=== PATIENT | male | born 1980 | race American Indian/Alaskan Native ===

== ENCOUNTER 2016-09-15 21:36 | Emergency (ER) | payer SELFPAY ==
[2016-09-15 22:26] VITALS: RESP 18; TEMP 98.3; O2SAT 100; BMI 21.7
--- NOTE | 2016-09-15 22:49 | ED PDOC ---
Arrival/HPI - General Chief Complaint: Weakness/Neurological Deficit Time Seen by Provider: 09/15/16 21:48 Historian: Patient - History of Present Illness Narrative History of Present Illness (Text): 09/15/16 22:45 This 36 yo male presents to this ED c/o b/l index, and thumb numbness x 2 years , and unintentional weight loss x 9 months. Patient stated he has a decreased appetite, and he has lost about 20 pounds in 9 months. Patient denies fever, sob, cp, abdominal pain, n/v/d, dizziness, urinary symptoms, rectal bleeding, hematochizia, melena, or abnormal gait. Time/Duration: Other (see HPI) Context: Home Past Medical History - Provider Review Nursing Documentation Reviewed: Yes - Infectious Disease Hx of Infectious Diseases: None - Psychiatric Hx Substance Use: No Family/Social History - Physician Review Nursing Documentation Reviewed: Yes Family/Social History: No Known Family HX Smoking Status: Light Smoker < 10 Cigarettes Daily Hx Alcohol Use: No Hx Substance Use: No Allergies/Home Meds Allergies/Adverse Reactions: Allergies No Known Allergies Allergy (Verified 03/08/12 10:21) Review of Systems - Review of Systems Constitutional: Normal. absent: Fatigue, Weight Change, Fevers Eyes: Normal ENT: Normal Respiratory: Normal. absent: SOB, Cough Cardiovascular: Normal Gastrointestinal: Appetite Changes. absent: Constipation, Diarrhea, Nausea, Vomiting, Hematochezia, Hematemesis Genitourinary Male: Normal. absent: Dysuria, Frequency, Hematuria Musculoskeletal: Normal. absent: Back Pain Skin: Normal. absent: Rash, Pruritis Neurological: Other ((+) numbness b/l thumb and index finger numbness). absent : Headache, Dizziness, Focal Weakness, Gait Changes, Speech Changes, Facial Droop, Disequilibrium, Seizure Endocrine: Normal Hemo/Lymphatic: Normal Psychiatric: Normal Physical Exam Vital Signs Temp Pulse Resp BP Pulse Ox 09/15/16 22:25 98.3 F 74 18 147/91 H 100 Temperature: Afebrile Blood Pressure: Normal Pulse: Regular Respiratory Rate: Normal Appearance: Positive for: Well-Appearing, Non-Toxic, Comfortable Pain Distress: None Mental Status: Positive for: Alert and Oriented X 3 - Systems Exam Head: Present: Atraumatic, Normocephalic Pupils: Present: PERRL Extroacular Muscles: Present: EOMI Conjunctiva: Present: Normal Mouth: Present: Moist Mucous Membranes Neck: Present: Normal Range of Motion Respiratory/Chest: Present: Clear to Auscultation, Good Air Exchange. No: Respiratory Distress, Accessory Muscle Use, Wheezes, Retracting, Rhonchi Cardiovascular: Present: Regular Rate and Rhythm, Normal S1, S2. No: Murmurs Abdomen: Present: Normal Bowel Sounds. No: Tenderness, Distention, Peritoneal Signs Back: Present: Normal Inspection. No: CVA Tenderness Upper Extremity: Present: Normal Inspection, Normal ROM, NORMAL PULSES, Neurovascularly Intact, Capillary Refill < 2s. No: Cyanosis, Edema Lower Extremity: Present: Normal Inspection, NORMAL PULSES, Normal ROM, Neurovascularly Intact, Capillary Refill < 2 s. No: Edema, CALF TENDERNESS Neurological: Present: GCS=15, CN II-XII Intact, Speech Normal, Motor Func Grossly Intact, Normal Sensory Function, Normal Cerebellar Funct, Gait Normal Skin: Present: Warm, Dry, Normal Color. No: Rashes Psychiatric: Present: Alert, Oriented x 3 Medical Decision Making ED Course and Treatment: 09/16/16 01:27 Re-evaluation. Patient feels better. Discussed results and plan with patient who expresses understanding. All questions answered and there is agreement with the plan to discharge home with instructions. Patient stable for discharge. Return if symptoms persist or worsen. 09/16/16 01:32 Patient was counseled for at least 10 minutes regarding tobacco use, risk, and benefits if he quit smoking. He understood plan. Re-evaluation Time: 01:28 Reassessment Condition: Re-examined, Improved - Lab Interpretations Lab Results: 09/15/16 23:09 09/15/16 23:09 Lab Results 09/16/16 00:09: Urine Color Yellow, Urine Appearance Sl cloudy, Urine pH 6.0, Ur Specific Kirby >= 1.030, Urine Protein Trace H, Urine Glucose (UA) Negative , Urine Ketones Negative, Urine Blood Negative, Urine Nitrate Negative, Urine Bilirubin Negative, Urine Urobilinogen 1.0 H, Ur Leukocyte Esterase Negative, Urine RBC 0 - 2, Urine WBC 0 - 2, Ur Epithelial Cells 0 - 2 09/15/16 23:09: HIV-1 Ab Rapid Screen Non reactive 09/15/16 23:09: Sodium 138, Potassium 4.0, Chloride 101, Carbon Dioxide 29, Anion Gap 12, BUN 17, Creatinine 1.0, Est GFR ( Amer) > 60, Est GFR (Non- Af Amer) > 60, Random Glucose 86, Calcium 9.6, Total Bilirubin 0.4, AST 43, ALT 41, Alkaline Phosphatase 61, Total Protein 7.5, Albumin 4.4, Globulin 3.1, Albumin/Globulin Ratio 1.4 09/15/16 23:09: WBC 6.0, RBC 5.09, Hgb 11.7 L, Hct 36.7 L, MCV 72.1 L, MCH 23.0 L, MCHC 31.9, RDW 14.2, Plt Count 261, MPV 9.9, Neutrophils % (Manual) 39 L, Lymphocytes % (Manual) 49 H, Monocytes % (Manual) 9 H, Eosinophils % (Manual) 3 , Platelet Evaluation Normal, Poikilocytosis (manual Slight I have reviewed the lab results: Yes Interpretation: Abnormal lab values (Anemia with poikilocytosis) - RAD Interpretation Narrative RAD Interpretations (Text): 09/16/16 01:09 [facility] Division of Radiology [address] [address] Tel. no. Patient Name: TOMAS WEINBERG Pt. Address: [address] [place] [address] Rec #: [id number] [place] [address]: Carmencita Moralez PA-C Pt Order Location: ED : 1980 Male Age: 36 Order #: [id number] Reason for exam: decreased appetite, wt loss CT Scan CHEST,ABD,PEL W/IV CONT ONLY Exam Date: 09/15/16 This imaging exam was performed at [facility] EXAM: CT Abdomen and Pelvis With Intravenous Contrast CLINICAL HISTORY: 36 years old, male; Signs and symptoms; Other: Wt. Loss; Shortness of breath ; Additional info: Decreased appetite, wt loss TECHNIQUE: Axial computed tomography images of the abdomen and pelvis with intravenous contrast. This CT exam was performed using one or more of the following dose reduction techniques: automated exposure control, adjustment of the mA and/or kV according to patient size, and/or use of iterative reconstruction technique. Coronal and sagittal reformatted images were created and reviewed. CONTRAST: 146 mL of OMNI 350 administered intravenously. COMPARISON: No relevant prior studies available. FINDINGS: Lower thorax: The bilateral lung bases are clear. ABDOMEN: Liver: No acute findings. Gallbladder and bile ducts: The gallbladder is decompressed. No calcified stones. No significant intra- or extrahepatic biliary ductal dilation. Pancreas: Enhances homogeneously. No ductal dilation. No discrete mass. Spleen: No acute findings. Adrenals: No acute findings. Kidneys and ureters: No acute findings. No hydronephrosis or renal calculi. No discrete solid mass. PELVIS: Bladder: No acute findings. Reproductive: No acute findings. Appendix: The air filled appendix is of normal caliber (series 2, image 198) . ABDOMEN and PELVIS: Stomach and bowel: No obstruction. No mucosal thickening. Peritoneum: No significant fluid collection. No free air. Lymph nodes: No pathologically enlarged lymph nodes. Vasculature: Unremarkable. Bones: No acute fracture. IMPRESSION: Unremarkable contrast enhanced CT examination of the abdomen and pelvis, as detailed above. EXAM: CT Chest With Intravenous Contrast CLINICAL HISTORY: 36 years old, male; Signs and symptoms; Other: Wt. Loss; Shortness of breath ; Additional info: Decreased appetite, wt loss TECHNIQUE: Axial computed tomography images of the chest with intravenous contrast. This CT exam was performed using one or more of the following dose reduction techniques: automated exposure control, adjustment of the mA and/or kV according to patient size, and/or use of iterative reconstruction technique. Coronal and sagittal reformatted images were created and reviewed. CONTRAST: 146 mL of OMNI 350 administered intravenously. COMPARISON: No relevant prior studies available. FINDINGS: Lungs: No mass. No consolidation. Pleural spaces: No significant effusion. No pneumothorax. Heart: No cardiomegaly. No significant pericardial effusion. Vasculature: No aortic aneurysm. Lymph nodes: No enlarged lymph nodes. Bones: No acute fracture. IMPRESSION: Unremarkable CT examination of the chest, as detailed above. Dictated By: Elvi Shepherd MD Dictated Date/Time: 09/16/1648 Signed By: Elvi Shepherd MD Date Signed: 48 Transcribed By: AILYN Transcribe Date/Time : 09/16/1648 TOMMIE/MIGUEL ANGEL Radiology Orders: 09/15/16 22:44 CHEST,ABD,PEL W/IV CONT ONLY [CT] Stat - Medication Orders Current Medication Orders: Discontinued Medications Iohexol (Omnipaque 350 150 Ml) Confirm Administered Dose 150 ml .ROUTE .STK-MED ONE Stop: 09/16/16 00:03 Disposition/Present on Arrival - Present on Arrival Any Indicators Present on Arrival: No History of DVT/PE: No History of Uncontrolled Diabetes: No Urinary Catheter: No History of Decub. Ulcer: No History Surgical Site Infection Following: None - Disposition Have Diagnosis and Disposition been Completed?: Yes Diagnosis: Anemia, Poikilocytosis, Weight loss, Tobacco dependence Disposition: HOME/ ROUTINE Disposition Time: 01:29 Patient Plan: Discharge Condition: GOOD Discharge Instructions (ExitCare): How to Stop Smoking (ED), Anemia (ED) Additional Instructions: Call clinic office for follow up visit in 1-2 days. You may need to apply for Medicaid or [place] care. Return to emergency if symptoms worsen. You need to see doctor on clinic so they can order more blood test for anemia. Eat healthy balance diet, and quit smoking. Referrals: PCP,NO [Primary Care Provider] - Follow up with primary [facility] [Outside] - Follow up with primary [facility] [Outside] - Follow up with primary Forms: WORK NOTE
[2016-09-15 23:30] LABS: ALB/GLOB RATIO 1.4 (1.1-1.8); ALKALINE PHOSPHATASE 61 U/L (38-133); ALT/SGPT 41 U/L (7-56); AST/SGOT 43 U/L (15-59); BILIRUBIN,TOTAL 0.4 mg/dL (0.2-1.3); BLOOD UREA NITROGEN 17 mg/dL (7-21); CALCIUM 9.6 mg/dL (8.4-10.5); CARBON DIOXIDE 29 mmol/L (21-33); CHLORIDE 101 mmol/L (98-107); GFR AFRICAN-AMERICAN > 60; GLUCOSE,RANDOM 86 mg/dL (70-110); SODIUM 138 mmol/L (132-148); TOTAL PROTEIN 7.5 g/dL (5.8-8.3)
[2016-09-15 23:36] LABS: HEMATOCRIT 36.7 % (42.0-52.0); MEAN CELL VOLUME 72.1 fL (80.0-105.0); MEAN CORPUSCULAR HGB CONC 31.9 g/dl (31.0-37.0); MEAN PLATELET VOLUME 9.9 fl (7.0-11.0); PLATELET COUNT 261 10^3/uL (120.0-450.0); RED CELL DISTRIBUTION WIDTH 14.2 % (11.5-14.5)
[2016-09-15 23:53] LABS: ADD MANUAL DIFF? YES
[2016-09-16 00:46] LABS: EOSINOPHIL 3 % (0.0-3.0); NEUTROPHIL 39 % (50.0-70.0); PLATELET ESTIMATE NORMAL (NORMAL)
[2016-09-16 00:47] LABS: POIKILOCYTOSIS SLIGHT
--- NOTE | 2016-09-16 00:50 | CT ---
EXAM: CT Abdomen and Pelvis With Intravenous Contrast CLINICAL HISTORY: 36 years old, male; Signs and symptoms; Other: Wt. Loss; Shortness of breath; Additional info: Decreased appetite, wt loss TECHNIQUE: Axial computed tomography images of the abdomen and pelvis with intravenous contrast. This CT exam was performed using one or more of the following dose reduction techniques: automated exposure control, adjustment of the mA and/or kV according to patient size, and/or use of iterative reconstruction technique. Coronal and sagittal reformatted images were created and reviewed. CONTRAST: 146 mL of OMNI 350 administered intravenously. COMPARISON: No relevant prior studies available. FINDINGS: Lower thorax: The bilateral lung bases are clear. ABDOMEN: Liver: No acute findings. Gallbladder and bile ducts: The gallbladder is decompressed. No calcified stones. No significant intra- or extrahepatic biliary ductal dilation. Pancreas: Enhances homogeneously. No ductal dilation. No discrete mass. Spleen: No acute findings. Adrenals: No acute findings. Kidneys and ureters: No acute findings. No hydronephrosis or renal calculi. No discrete solid mass. PELVIS: Bladder: No acute findings. Reproductive: No acute findings. Appendix: The air filled appendix is of normal caliber (series 2, image 198). ABDOMEN and PELVIS: Stomach and bowel: No obstruction. No mucosal thickening. Peritoneum: No significant fluid collection. No free air. Lymph nodes: No pathologically enlarged lymph nodes. Vasculature: Unremarkable. Bones: No acute fracture. IMPRESSION: Unremarkable contrast enhanced CT examination of the abdomen and pelvis, as detailed above. EXAM: CT Chest With Intravenous Contrast CLINICAL HISTORY: 36 years old, male; Signs and symptoms; Other: Wt. Loss; Shortness of breath; Additional info: Decreased appetite, wt loss TECHNIQUE: Axial computed tomography images of the chest with intravenous contrast. This CT exam was performed using one or more of the following dose reduction techniques: automated exposure control, adjustment of the mA and/or kV according to patient size, and/or use of iterative reconstruction technique. Coronal and sagittal reformatted images were created and reviewed. CONTRAST: 146 mL of OMNI 350 administered intravenously. COMPARISON: No relevant prior studies available. FINDINGS: Lungs: No mass. No consolidation. Pleural spaces: No significant effusion. No pneumothorax. Heart: No cardiomegaly. No significant pericardial effusion. Vasculature: No aortic aneurysm. Lymph nodes: No enlarged lymph nodes. Bones: No acute fracture. IMPRESSION: Unremarkable CT examination of the chest, as detailed above.
[2016-09-16 00:58] LABS: URINE BILIRUBIN NEGATIVE (NEGATIVE); URINE BLOOD NEGATIVE (NEGATIVE); URINE GLUCOSE (UA) NEGATIVE (NEGATIVE); URINE KETONE NEGATIVE (NEGATIVE); URINE LEUKOCYTE ESTERASE NEGATIVE Leu/uL (NEGATIVE); URINE PROTEIN TRACE mg/dL (<30 mg/dL)
[2016-09-16 01:13] LABS: URINE APPEARANCE SL CLOUDY (CLEAR); URINE COLOR YELLOW (YELLOW)
[2016-09-16 01:15] LABS: URINE EPITHELIAL CELLS 0 - 2 /hpf (0-5); URINE RBC 0 - 2 /hpf (0-2); URINE WBC 0 - 2 /hpf (0-6)
[2016-09-16 02:03] VITALS: BP 144/81; PULSE 80
== END 2016-09-16 02:04 | disposition home or self-care (01) ==
LOC: ED 21:36
DX: D64.9 Anemia, unspecified (principal); R63.4 Abnormal weight loss; F17.210 Nicotine dependence, cigarettes, uncomplicated
CPT/HCPCS: 71260; 74177; 80053; 81001; 85025; 87390; 99284; Q9967